=== PATIENT | male | born 1945 | race Caucasian/White ===

== ENCOUNTER 2018-08-23 08:36 | Emergency (ER) | payer MEDICARE ==
[~2018-08-23] VITALS: Ht 180.3 cm; Wt 72.3 kg
[2018-08-23] MEDS ORDERED: ondansetron/PF 4mg/2ml inj IV ONE (09:00)
[2018-08-23] MEDS ORDERED: pantoprazole 40 MG vial IV ONE (09:00)
[2018-08-23] MEDS ORDERED: ESOMEPRAZOLE 40 MG VIAL IV ONE (09:05)
[2018-08-23 09:18] LABS: BASOPHILS % (AUTO) 0.3 % (0-1); EOSINOPHILS % (AUTO) 0.2 % (0-6); HEMATOCRIT 35.6 % (42.0-52.0); LYMPHOCYTES # (AUTO) 0.4 X10'3 (1.1-4.8); LYMPHOCYTES % (AUTO) 3.4 % (21-51); MEAN CORPUSCULAR HGB CONC 33.8 g/dL (33.0-36.5); MEAN PLATELET VOLUME 7.2 FL (7.4-10.4); MONOCYTES # (AUTO) 0.9 X10'3 (0-0.9); MONOCYTES % (AUTO) 7.7 % (2-12); NEUTROPHILS % (AUTO) 88.4 % (42-75); PLATELET COUNT 311 X10'3 (140-440); RED BLOOD COUNT 3.87 X10'6 (4.70-6.10); RED CELL DISTRIBUTION WIDTH 13.7 % (11.5-14.5); WHITE BLOOD COUNT 11.4 X10'3 (4.5-11.0)
[2018-08-23] MEDS ORDERED: normal saline 1000ML IV soln IVB ONE ×2 (09:40)
[2018-08-23] MEDS ORDERED: morphine 4 MG/ML inj SYRINge IV ONE (09:40)
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
[2018-08-23 09:58] LABS: ALANINE AMINOTRANSFERASE 34 U/L (12-78); ALBUMIN 2.5 G/DL (3.4-5.0); ALBUMIN/GLOBULIN RATIO 0.6 (1.1-1.5); ALKALINE PHOSPHATASE 84 IU/L (46-116); ANION GAP 11 (8-16); ASPARTATE AMINO TRANSFERASE 29 U/L (10-37); BILIRUBIN,TOTAL 0.4 MG/DL (0.1-1.0); BLOOD UREA NITROGEN 19 MG/DL (7-18); CALCIUM 8.7 MG/DL (8.5-10.1); CHLORIDE 101 MMOL/L (99-107); CREATININE 0.76 MG/DL (0.60-1.10); GLUCOSE 123 MG/DL (70-104); POTASSIUM 3.3 MMOL/L (3.5-5.1); SODIUM 133 MMOL/L (135-145); TOTAL CARBON DIOXIDE 20.6 MMOL/L (24-32); TOTAL PROTEIN 6.6 G/DL (6.4-8.2); eGFR > 90 ML/MIN
[2018-08-23 10:00] LABS: LIPASE 98 U/L (73-393)
--- NOTE | 2018-08-23 10:01 | NUR ---
DR APODACA UPDATED, STILL NAUSEATED, UPDATED ON VITALS
[2018-08-23] MEDS ORDERED: proCHLORperazine 10 MG/2 ml inj IV ONE (10:10)
[2018-08-23] MEDS ORDERED: ONDA8TAB13 PO (10:31)
[2018-08-23] MEDS ORDERED: SUCR1TAB34 PO (10:31)
--- NOTE | 2018-08-23 11:05 | NUR ---
patient states that he is no longer nauseated spoke with Dr Herrera: would like urine sample prior to dc home
--- NOTE | 2018-08-23 11:06 | NUR ---
patient will attempt to void stnading up, denies dizzyness
--- NOTE | 2018-08-23 11:20 | NUR ---
80 ML OF DARK CORNEL CLEAR URINE COLLECTED AND CARRIED TO LAB. DISCHARGE IS PENDING RESULTS OF UA
[2018-08-23 11:29] LABS: CLARITY,URINE CLEAR (Clear); COLOR,URINE YELLOW (Yellow); GLUCOSE, URINE NEGATIVE (Neg); KETONES,URINE >=80 mg/dl (Neg); LEUKOCYTE ESTERASE ,URINE NEGATIVE (Neg); NITRITES, URINE NEGATIVE (Neg); OCCULT BLOOD,URINE NEGATIVE (Neg); PH,URINE 6.5 (4.8-8.0); PROTEIN,URINE 30 mg/dl (Neg)
[2018-08-23 11:31] LABS: UA COLLECTION TYPE URINAL
[2018-08-23 11:34] LABS: BACTERIA,URINE FEW /HPF (Neg); MUCUS STRANDS MODERATE /LPF (Neg); RBC,URINE 0-2 /HPF (0-2); SQUAMOUS EPITHELIAL CELL,UR NONE SEEN /LPF (FEW)
--- NOTE | 2018-08-23 12:03 | NUR ---
PATIENT DRANK 60 ML OF WATER, DENIED NAUSEA
[2018-08-23 12:21] VITALS: BP 131/53
--- NOTE | 2018-08-23 12:21 | NUR ---
relieving RN for break, pt mabel PO water well, no n/v
== END 2018-08-23 12:23 | disposition home or self-care (01) ==
LOC: ER 08:36
DX: R11.10 Vomiting, unspecified (principal); R10.13 Epigastric pain; K21.9 Gastro-esophageal reflux disease without esophagitis; G89.29 Other chronic pain; F12.90 Cannabis use, unspecified, uncomplicated; Z87.891 Personal history of nicotine dependence; Z88.4 Allergy status to anesthetic agent
CPT/HCPCS: 36415; 80053; 81001; 83690; 85025; 87088; 96361; 96374; 96375; 99283; J0780; J2270; J2405; J7030